=== PATIENT | male | born 1975 | race Caucasian/White ===

== ENCOUNTER → 2018-07-02 | Outpatient (CLI) | payer OTHER ==
[~2018-07-02] MED LIST: ACET-1256 PO; NAPR1TAB48 PO; OXYC-90 PO; PHEN-537 PO; PRLSR20 PO; SINCALIDE INJ 1.3 MCG in SODIUM CHLORIDE 0.9% 100ML 100 ML IV ONE
--- NOTE | 2018-07-02 13:26 | DIAGNOSTIC IMAGING REPORT ---
NUCLEAR HEPATOBILIARY SCAN WITH EJECTION FRACTION IMAGING CLINICAL HISTORY: Epigastric abdominal pain. Diarrhea. COMPARISON STUDY: Abdominal ultrasound dated 05/08/2016. TECHNIQUE: Dynamic images of the liver and anterior abdomen were obtained every 5 minutes for a total of 60 minutes following the IV administration of 5.6mCi of technetium 99m Choletec. 1.3 mcg of sincalide was then injected with additional images acquired every 5 minutes for 45 minutes to calculate the gallbladder ejection fraction. FINDINGS: The hepatobiliary scan shows prompt and homogeneous hepatic uptake. There is visualized activity within the intra and extrahepatic biliary tree at 10 minutes, and within the gallbladder at 25 minutes. There is normal biliary to bowel transit, with small bowel visualized by 15 minutes. On the sincalide imaging, the gallbladder ejection fraction was measured at 31%. IMPRESSION: 1. Unremarkable nuclear hepatobiliary scan. There is no scintigraphic evidence of cholecystitis. 2. The gallbladder ejection fraction measured 31%. This is minimally diminished (normal is 35% or greater), which may be artifactual. Electronically signed by: Isaak Marinelli M.D. 07/02/2018 1:24 PM Dictated Date/Time: 07/02/2018 1:21 PM
== END | disposition home or self-care (01) ==
LOC: C.NUCL 10:21
PROVIDERS: ATTEND Family Medicine
DX: R10.816 Epigastric abdominal tenderness (principal); R19.7 Diarrhea, unspecified